=== PATIENT | female | born 1965 | race Caucasian/White ===

== ENCOUNTER 2021-10-14 07:39 | Outpatient (CLI) | payer BC | END 2021-10-14 07:40 | disposition home or self-care (01) | LOC: BICCT 07:39 | PROVIDERS: ATTEND Internal Medicine Hematology & Oncology | DX: Z12.2 Encounter for screening for malignant neoplasm of respiratory organs (principal); Z87.891 Personal history of nicotine dependence; D35.02 Benign neoplasm of left adrenal gland | CPT/HCPCS: 71271 ==